=== PATIENT | female | born 1990 ===

== ENCOUNTER → 2019-01-09 | Outpatient (CLI) | payer SELFPAY | END | disposition home or self-care (01) | LOC: LAB SHORT 11:39 → LAB 11:39 | DX: J02.9 Acute pharyngitis, unspecified (principal) | CPT/HCPCS: 87081 ==

== ENCOUNTER → 2024-01-06 | Outpatient (CLI) | payer OTHER | END | disposition home or self-care (01) | LOC: LAB 08:14 → LAB SHORT 08:14 | DX: R87.610 Atypical squamous cells of undetermined significance on cytologic smear of cervix (ASC-US) (principal); R87.810 Cervical high risk human papillomavirus (HPV) DNA test positive | CPT/HCPCS: 88305; 88342 ==

== ENCOUNTER 2024-05-27 09:44 | Day surgery (SDC) | payer OTHER ==
[~2024-05-27] VITALS: Ht 167.6 cm; Wt 128.5 kg
[~2024-05-27 09:44] MED LIST: Bupivacaine 0.5% W/EPI 1:200000 SDV 30 ML Vial ONE; Lactated Ringer's 1,000 ML IV ONE
[2024-05-27] MEDS ORDERED: CeFAZolin Sodium 3,000 MG VIAL ONE (10:01)
[2024-05-27] MEDS ORDERED: ZYRTEC10 M2 PO (10:04)
[2024-05-27] MEDS ORDERED: FentaNYL Citrate 50 MCG/ML 2 ML Injection ONE (10:07)
[2024-05-27] MEDS ORDERED: propofoL 20 ML IV ONE ×2 (10:07→11:13)
[2024-05-27] MEDS ORDERED: Midazolam HCl 1MG / ML 2ML Vial ONE (10:08)
[2024-05-27] MEDS ORDERED: Ondansetron HCl 2 MG / ML 2ML Vial ONE (10:09)
[2024-05-27] MEDS ORDERED: Dexamethasone Sod Phos 10 MG/ML 1ML VIAL ONE (10:09)
[2024-05-27] MEDS ORDERED: Lactated Ringer's 1,000 ML IV ONE (10:10)
[2024-05-27] MEDS ORDERED: Ketorolac Tromethamine 30mg Vial ONE (11:28)
[2024-05-27] MEDS ORDERED: Sugammadex Sodium 200 MG/2ML SDV (100 MG/ML) ONE ×2 (11:29→11:48)
[2024-05-27 12:14] VITALS: BP 139/83
--- NOTE | 2024-05-27 12:51 | NUR ---
05/27/24 1251 MARIANA MOY RECEIVED REPORT FROM [facility]EE. SENDING HER TO BREAK. PT IN CHAIR, VSS - SLIGHT DIASTOLIC HYPERTENSION. CHANGED CUFF. DIASTOLIC NOW UNDER 100. PT REPORTS "EMPTYPIT" FEELING IN STOMACH BUT DENIES NAUSEA/PAIN. PT'S FIANCE BROUGHT TO BEDSIDE AND PT OFFERED SNACKS - TOLERATING SIPS AND STRING CHEESE. WILL ENGAGE IN DC INSTRUCTIONS.
== END 2024-05-27 13:07 | disposition home or self-care (01) ==
LOC: ORSCSDS 09:44
PROVIDERS: Obstetrics & Gynecology
PROC: 0UBC7ZX Excision of Cervix, Via Natural or Artificial Opening, Diagnostic (ICD-10-PCS; principal; 2024-05-27 11:00)
DX: R87.613 High grade squamous intraepithelial lesion on cytologic smear of cervix (HGSIL) (principal); Z87.891 Personal history of nicotine dependence; E66.01 Morbid (severe) obesity due to excess calories; Z68.42 Body mass index [BMI] 45.0-49.9, adult; F32.A Depression, unspecified; F41.9 Anxiety disorder, unspecified; F43.10 Post-traumatic stress disorder, unspecified
CPT/HCPCS: 88305; J0690; J1100; J1885; J2250; J2405; J2704; J3010; J7120